=== PATIENT | female | born 1960 | race Caucasian/White ===

== ENCOUNTER 2017-12-10 10:53 | Day surgery (SDC) | payer BC, SELFPAY ==
[2017-12-06 15:00] VITALS: BMI 23.6
[2017-12-10] VITALS (10 sets, daily range): BP systolic 92–143; BP diastolic 53–88; PULSE 72–87; RESP 9–20; TEMP 36.4–36.5; O2SAT 97–100
--- NOTE | 2017-12-10 12:52 | P.PCN_ITS ---
[facility] Procedure Note Procedure Note:: Colonoscopy Procedure Report: Colonoscopy with cold snare polypectomy Endoscopist: Amarjit Breaux II, MD Referring physician: Ya Oreilly MD/Celestine Cheng MD Date of Procedure: December 10, 2017 Equipment: Olympus 180 variable stiffness pediatric colonoscope Sedation: Fentanyl 200 mg IV/ Versed 9 mg IV Indication: Ms. Camp is a 57-year-old female who is here for screening colonoscopy. She did have a normal colonoscopy 15 years ago. She does state that both of her grandmothers had colon cancer. She will rarely have some lower abdominal discomfort with irregular bowel function. She reports no abdominal pain, weight loss, change in her bowel habits or rectal bleeding. Procedure: Prior to the procedure, a history and physical exam was performed, and patient' s medications and allergies were reviewed. The risks, benefits and alternatives of the sedation and procedure were discussed with the patient. All questions were answered and informed consent was obtained. The patient was brought to the procedure room. Patient identification and proposed procedure were verified by the physician and the nurse. The patient was placed in a left lateral decubitus position and the scope was passed under direct vision. Throughout the procedure, the patient's blood pressure, pulse, and oxygen saturations were monitored continuously. The colonoscopy was accomplished without difficulty. The patient tolerated the procedure well. Findings: On digital rectal examination there was normal rectal tone. There were no external hemorrhoids. The colonoscope was introduced through the anal canal to the rectum and advanced to the cecum. The ileocecal valve and appendiceal orifice were identified. The scope was advanced a short distance into the ileum which appeared grossly normal. The scope was then withdrawn into the colon. There was a single diminutive polyp in the cecum that was 4 mm in size and removed via cold snare polypectomy. The remaining cecum, ascending and transverse colon and mucosa were grossly normal. There were very mildly scattered diverticuli throughout the descending and sigmoid colon (LEFT colon). The rectum itself was normal. Upon retroflexion within the rectum there were grade 1 internal hemorrhoids. Impression: 1. Diminutive cecal polyp 2. Very mild left-sided diverticulosis 3. Grade 1 internal hemorrhoids Plan: I will follow up the polyp pathology and recommend repeat colonoscopy again in 5 years based upon the polyp histology and patient's family history. I would encourage fiber supplementation on a long-term daily maintenance basis.
== END 2017-12-10 13:50 | disposition home or self-care (01) ==
LOC: OUTP 10:57
PROVIDERS: Visit Provider Internal Medicine Gastroenterology
PROC: 0DJD8ZZ Inspection of Lower Intestinal Tract, Via Natural or Artificial Opening Endoscopic (ICD-10-PCS; CPT 45378; principal; 2017-12-10 12:00)
DX: Z12.11 Encounter for screening for malignant neoplasm of colon (principal); K63.5 Polyp of colon; K57.30 Diverticulosis of large intestine without perforation or abscess without bleeding; K64.0 First degree hemorrhoids
CPT/HCPCS: 45380; 99152

== ENCOUNTER 2020-03-23 14:03 | Emergency (ER) | payer BC, SELFPAY ==
[2020-03-23 14:10] VITALS: BP 120/70; PULSE 112; RESP 18; TEMP 36.9; O2SAT 100; BMI 22.6
--- NOTE | 2020-03-23 14:17 | HMH.COUGH ---
[facility]ough [facility] HPI - History of Present Illness Complaint:: cough x5 weeks HPI:: 59 year old female with cough for 5-6 weeks and no other symptoms nor ill contacts. She has been following social distancing guidelines during the coronavirus pandemic. Home Medications: Home Medications Medication Instructions Recorded Confirmed Type Cyproheptadine HCl [Periactin 4mg 4 mg PO BID 12/06/17 03/23/20 History Tablet] Minocycline HCl [Minocin 100mg 100 mg PO DAILY 12/07/17 03/23/20 History capsule] Cetirizine HCl [Zyrtec] 10 mg PO DAILY 03/23/20 03/23/20 History Fesoterodine Fumarate [Toviaz] 8 mg PO DAILY 03/23/20 03/23/20 History Allergies/Adverse Reactions: Allergies Allergy/AdvReac Type Severity Reaction Status Date / Time latex Allergy Verified 03/23/20 14:06 pimecrolimus [From Elidel] Allergy Verified 03/23/20 14:06 Cough [facility] Triage - Symptoms Fever History: No Chills: No Myalgia: No Nasal Drainage: No Sore Throat: No Productive Cough: No Non-productive Cough: Yes Ear or Sinus Pain: No Joint Pain: No Chest Pain: No Rash: No Shortness of Breath: No Nausea or Vomitting: No Headache: No Abdominal Pain: No Diarrhea: No - Exposure History Foreign Travel: No Direct Contact with COVID-19 Patient: No - Risk Factors Greater than 60 Years Old: No COPD: No Diabetes: No Heart Disease: No Home Oxygen Use: No Chronic Renal Disease: No Chronic Liver Disease: No Neurologic/Neurodevelopmental/intellectual disability: No Other Chronic Diseases: No If Female, currently : No Current Smoker: No Former Smoker: No Cough [facility] History I have reviewed the patient's past medical history: Yes Medical History: Denies:: Diabetes Mellitus Type 1, Diabetes Mellitus Type 2, Internal Pacemaker, Lung Disease, Seizures Other Surgeries: No: Pacemaker ROS Obtained: Yes All systems reviewed & no additional complaints [facility] Exam - General General appearance: alert, in no apparent distress - Head Head exam: atraumatic, normocephalic, normal inspection - Eye Eye exam: Present: normal appearance, PERRL, EOMI - ENT ENT exam: Present: normal exam, normal oropharynx, mucous membranes moist, TM's normal bilaterally, normal external ear exam - Neck Neck exam: Present: normal inspection, full ROM, trachea midline. Absent: meningismus, lymphadenopathy - Chest Chest inspection: Present: normal inspection, symmetric chest wall rise. Absent: tenderness - Respiratory Respiratory exam: Present: normal lung sounds bilaterally. Absent: respiratory distress - Cardiovascular Cardiovascular exam: Present: regular rate, normal rhythm. Absent: JVD - Extremities Exam Extremities exam: Present: normal inspection, full ROM, normal capillary refill. Absent: calf tenderness - Neurological Exam Neurological exam: Present: alert, oriented X3 - Skin Skin exam: Present: warm, dry, intact, normal color - Lymphatic Lymphatic Findings: no adenopathy Cough [facility] MDM Vital Signs: 03/23/20 14:10 Temperature 98.4 F Temperature Source Oral Pulse Rate [Right Brachial] 112 H Respiratory Rate 18 Blood Pressure [Left Arm] 120/70 Blood Pressure Mean [Left Arm] 86 Blood Pressure Source [Left Arm] Automatic Cuff Blood Pressure Position [Left Arm] Sitting 02 Sat by Pulse Oximetry 100 Oxygen Delivery Method Room Air - Lab Data Lab Results 03/23/20 14:14: WBC 8.9, RBC 4.44, Hgb 12.5, Hct 39.7, MCV 89.5, MCH 28.3, MCHC 31.6 L, RDW 13.1, Plt Count 355, MPV 6.8 L, Neut % (Auto) 54.9, Lymph % (Auto) 22.1, Loup % (Auto) 9.4 H, Eos % (Auto) 12.7 H, Baso % (Auto) 0.8, Neut # (Auto) 4.9, Lymph # (Auto) 2.0, Loup # (Auto) 0.8, Eos # (Auto) 1.1 H, Baso # (Auto) 0.1 Orders (Tests/Meds): CBC not indicative of bacterial or viral infection. Symptoms more consistent with allergic etiology. No concern for Covid infection. Cough Clinic Disposition Clinical Impression: Allergic cough Disposition: Pool
[2020-03-23 14:23] LABS: Hematocrit 39.7 % (37.0-47.0); Hemoglobin 12.5 g/dL (12.2-16.2); Mean Corpuscular Volume 89.5 fl (81-99); Red Blood Count 4.44 M/mm3 (4.20-5.40); White Blood Count 8.9 K/mm3 (4.8-10.8)
[2020-03-23 14:24] LABS: Basophils # 0.1 K/mm3 (0-0.2); Basophils % 0.8 % (0.1-2.0); Eosinophils # 1.1 K/mm3 (0.0-0.4); Eosinophils % 12.7 % (0.1-12.0); Lymphocytes % 22.1 % (10-50); Mean Corpuscular HGB Conc 31.6 g/dL (31.8-35.4); Mean Corpuscular Hemoglobin 28.3 pg (27.0-31.2); Mean Platelet Volume 6.8 fl (7.4-10.4); Monocytes # 0.8 K/mm3 (0.1-1.0); Monocytes % 9.4 % (1.7-9.3); Neutrophils # 4.9 K/mm3 (1.8-7.8); Neutrophils % 54.9 % (37.0-80.0); Platelet Count 355 K/mm3 (142-424); Red Cell Distribution Width 13.1 % (11.5-17.5)
[2020-03-23 14:28] VITALS: BP 120/70; PULSE 110; RESP 18; TEMP 36.9; O2SAT 100
== END 2020-03-23 14:32 | disposition home or self-care (01) ==
PROVIDERS: Emergency Provider Family Medicine
DX: R05 Cough (principal)
CPT/HCPCS: 36415; 85025; 99201; 99212